=== PATIENT | female | born 1960 | race Caucasian/White ===

== ENCOUNTER 2017-02-14 14:13 | Emergency (ER) | payer MEDICARE, SELFPAY ==
[2017-02-14 14:04] LABS: BASOPHILS 0.6 %; BASOPHILS ABSOLUTE 0.04 10/3/uL (0.0-0.16); EOSINOPHILS 1.7 %; EOSINOPHILS ABSOLUTE 0.11 10/3/uL (0.0-0.53); IMMATURE GRANULOCYTES 0.3 %; IMMATURE GRANULOCYTES ABSOLUTE 0.02 10/3/uL (0.0-0.11); LYMPHOCYTES ABSOLUTE 1.82 10/3/uL (0.67-4.30); MEAN CORPUS HGB CONC 34.5 g/dL (32.0-36.0); MEAN CORPUSCULAR HEMOGLOB 30.9 pg (26.0-34.0); MEAN CORPUSCULAR VOLUME 89.4 fL (80-100); MEAN PLATELET VOLUME 9.1 fL (9.2-13.0); MONOCYTES 11.4 %; MONOCYTES ABSOLUTE 0.74 10/3/uL (0.21-1.20); NEUTROPHILS ABSOLUTE 3.76 10/3/uL (2.02-8.40); PLATELET COUNT 225 10/3/uL (150-400); RBC DISTRIBUTION WIDTH 12.5 % (12.0-16.0); WHITE BLOOD CELLS 6.5 10/3/uL (4.5-10.5)
[2017-02-14 14:05] LABS: HEMATOCRIT 39.7 % (36.0-48.0); HEMOGLOBIN 13.7 g/dL (12.0-16.0); MANUAL DIFF NO %; RED CELL COUNT 4.44 10/6/uL (4.0-5.6)
[2017-02-14 14:09] LABS: ASCORBIC ACID (UR NOT ORDER) NEG (NEG); BILIRUBIN, URINE NEGATIVE (NEG); ER URINALYSIS TAT 0 Hrs 11 Mins; KETONE, URINE NEGATIVE (NEG); LEUKOCYTE ESTERASE(NOT OR NEG (NEG); NITRITE (URINE) NEG (NEG); WBC (NOT ORDERED) (RFLEX) 1 (0-5)
[~2017-02-14 14:13] MED LIST: ADVAIR250 INH; ADVIL PO; ALEVE PM PO; ALEVE220 MG PO; AMB10 PO; AMIT75 PO; AMITRIPTYLIN150 MG PO; BUSPAR15 M1 PO; BUSPAR30 MG PO; CIP5 PO; DIPHENHYDRAMINE PO; FISH-EPA1000 MG PO; HORMONE PILL PO; IBUPROFEN PO; LIPITOR40 PO; LOPID6 PO; LUNESTA3 MG PO; Lunesta; METOPROLOL; MVI PO; NAPROSYN PO; NEXIUM40 PO; NORCO1 TAB PO; OTC FISH OIL PO; PRILOSEC40 MG PO; PROZAC PO; SEROQUEL XR400 MG PO; SEROQUEL25 PO; SEROQUEL300 MG PO; SEROQUEL50 MG PO; TOPXL100 PO; TOPXL50 PO; VENTOLIN HFA INH; X25 PO; ZANAFLEX 4 MG TA4 MG PO
[2017-02-14 14:18] LABS: ALBUMIN 3.8 G/DL (3.5-5.0); ALKALINE PHOSPHATASE 152 U/L (45-117); CALCIUM, SERUM 8.9 MG/DL (8.5-10.4); CHLORIDE, SERUM 106 MMOL/L (96-112); CREATININE 0.79 MG/DL (0.55-1.02); GFR AFRICAN AMERICAN 96 ML/MIN (>=60); GFR NON AFRICAN AMERICAN 83 ML/MIN (>=60); GLOBULIN 3.8 G/DL (2.5-4.1); GLUCOSE, SERUM 101 MG/DL (60-99); POTASSIUM, SERUM 3.4 MMOL/L (3.5-5.3); SGOT(AST) 30 U/L (5-40); SGPT(ALT) 31 U/L (5-65); SODIUM, SERUM 138 MMOL/L (135-148); TOTAL PROTEIN 7.6 G/DL (6.0-8.5)
[2017-02-14 14:19] LABS: BUN (BLOOD UREA NITROGEN) 11 MG/DL (6-23); CO2 (CARBON DIOXIDE) 24 MMOL/L (24-34); TOTAL BILIRUBIN 0.7 MG/DL (0-1.2)
[2017-02-14 14:22] LABS: LACTATE 1.1 MMOL/L (0.3-2.4)
== END 2017-02-14 15:52 | disposition home or self-care (01) ==
LOC: ER 14:13
PROVIDERS: Hospitalist
DX: K59.00 Constipation, unspecified (principal); R14.0 Abdominal distension (gaseous); F32.9 Major depressive disorder, single episode, unspecified; Z90.710 Acquired absence of both cervix and uterus; Z79.899 Other long term (current) drug therapy
CPT/HCPCS: 74176; 80053; 81001; 83605; 83690; 85025; 96374; 99284; J1885; J2405